=== PATIENT | female | born 1985 | race Native Hawaiian/Other Pacific Islander ===

== ENCOUNTER 2021-09-02 17:49 | Observation (INO) | END 2021-09-02 19:20 | disposition home or self-care (01) | LOC: 1NENULAB | PROVIDERS: ADMIT Advanced Practice Midwife; ATTEND Advanced Practice Midwife ==

== ENCOUNTER 2021-09-03 00:42 | Inpatient (IN) ==
[~2021-09-03 00:42] MED LIST: *HR* Nalbuphine 10 MG/ML AMPUL IV PRN; Azithromycin 500 MG in 0.9 % Sodium Chloride 250 ML IVPB PRN; Famotidine 20 MG/2 ML VIAL IVP PRN; Lidocaine 1% 20 ML MDV INFILT PRN; Metoclopramide 10 MG/2 ML VIAL IVP PRN; Naloxone 0.4 MG/ML INJ IVP PRN; Ondansetron 4 MG/2 ML VIAL IVP PRN
[2021-09-03] MEDS ORDERED: Ringers Solution, Lactated 1,000 ML IVC SCH (00:45)
[2021-09-03 01:43] LABS: Basophils % 0.2 %; Eosinophils % 0.2 %; Hematocrit 38.3 % (35.3-44.9); Hemoglobin 13.2 g/dL (11.5-15.4); Immature Granulocytes % 0.4 % (0-4); Lymphocytes # 1.9 K/mcL (0.6-4.6); Lymphocytes % 15.1 %; Mean Corpuscular HGB Conc 34.5 g/dL (31.6-35.5); Mean Corpuscular Hemoglobin 30.9 pg (28.0-33.3); Mean Corpuscular Volume 89.7 fL (83.0-100.0); Mean Platelet Volume 11.8 fL (9.4-12.4); Monocytes # 0.7 K/mcL (0.0-1.3); Monocytes % 5.4 %; Neutrophils # 9.6 K/mcL (1.6-8.9); Platelet Count 254 K/mcL (140-400); Red Blood Count 4.27 M/mcL (3.82-4.97); Red Cell Distribution Width 13.3 % (11.5-14.5); Segmented Neutrophils % 78.7 %; White Blood Count 12.3 K/mcL (4.3-11.1)
[2021-09-03 02:08] LABS: Influenza A PCR Negative (Negative); Influenza B PCR Negative (Negative); Resp. Syncytial Virus PCR Negative (Negative)
[2021-09-03 02:12] LABS: SARS-CoV-2 by PCR (In House) Negative (Negative)
[2021-09-03] MEDS ORDERED: Oxytocin 30 UNIT/503 ML BAG IVC ONE (03:23)
[2021-09-03] MEDS ORDERED: OXYTOCIN/RINGERS LACTATE 10 UNIT/166.6 ML BAG IVC ONE (06:06)
[2021-09-03] MEDS ORDERED: Oxytocin 30 UNIT/503 ML BAG IVC SCH (06:06)
[2021-09-03] MEDS ORDERED: Ondansetron ODT 4 MG TAB.RAPDIS SL PRN (06:06)
[2021-09-03] MEDS ORDERED: Benzocaine/Menthol 56 GM AEROSOL SPRAY TP PRN (06:06)
[2021-09-03] MEDS: Ibuprofen 600 MG TABLET PO SCH ×3 (06:53→20:00)
[2021-09-03] MEDS: Acetaminophen 325 MG TABLET PO SCH ×3 (06:53→20:00)
[2021-09-03] MEDS: Lanolin 7 G OINT...G. TP PRN (07:50)
[2021-09-03] MEDS: Prenatal Vit/FA 1 EACH TABLET PO SCH (07:50)
[2021-09-04] MEDS: Acetaminophen 325 MG TABLET PO SCH (07:19)
[2021-09-04] MEDS: Ibuprofen 600 MG TABLET PO SCH ×2 (07:20→07:49)
[2021-09-04 07:37] VITALS: BP 103/57; PULSE 70; TEMP 97.9; O2SAT 98
[2021-09-04] MEDS: Prenatal Vit/FA 1 EACH TABLET PO SCH (07:49)
[2021-09-04] MEDS: Lanolin 7 G OINT...G. TP PRN (07:49)
== END 2021-09-04 11:20 | disposition home or self-care (01) | DRG 807 ==
LOC: 1NENULAB → 1NENUOBS 06:24
PROVIDERS: ADMIT Obstetrics & Gynecology; ATTEND Obstetrics & Gynecology